=== PATIENT | female | born 1980 | race African-American/Black ===

== ENCOUNTER 2019-09-27 20:28 | Emergency (ER) | payer OTHER, MEDICAID ==
[~2019-09-27] VITALS: Ht 170.2 cm; Wt 100.0 kg
[2019-09-27 21:10] LABS: EOSINOPHILS % 6.1 % (0.0-5.0); HEMATOCRIT. 36.2 % (36.0-48.0); HEMOGLOBIN. 11.7 g/dL (12.0-16.0); LYMPHOCYTES % 21.9 % (20.0-50.0); MEAN CORPUSCULAR HEMOGLOBIN 27.9 pg (28.0-32.0); MEAN CORPUSCULAR VOLUME 86.2 fL (81.0-99.0); MEAN PLATELET VOLUME 10.9 fl (7.4-10.4); MONOCYTES % 7.9 % (2.0-8.0); NEUTROPHILS % 63.1 % (40.0-76.0); PLATELET 154 x1000/uL (130-400); RED CELL DISTRIBUTION WIDTH 16.8 % (11.6-14.6)
[2019-09-27 21:15] LABS: CHLORIDE 92 mEq/L (98-107)
[2019-09-27 21:21] LABS: PHOSPHORUS 5.9 mg/dL (2.5-4.9)
[2019-09-27] MEDS ORDERED: INSULIN REGULAR (HUMULIN R) 300UNITS/3ML IV ONE (21:30)
[2019-09-27] MEDS ORDERED: ONDANSETRON HCL 4MG/2ML INJ IV ONE (21:30)
[2019-09-27 21:33] LABS: HCG SCREEN NEGATIVE
[2019-09-27 22:11] LABS: BG BASE EXCESS -5.1 mmol/L (-2.0-2.0); BG CARBOXYHEMOGLOBIN 0.9 % (0.5-1.5); BG DEOXYHEMOGLOBIN 10.4 % (0.0-5.0); BG FRACTION INSPIRED OXYGEN 21; BG HCO3 ACT 21.6 mmol/L (22.0-26.0); BG METHEMOGLOBIN 0.3 % (0.0-1.5); BG OXYGEN SATURATION 89.5 % (92.0-98.5); BG OXYHEMOGLOBIN 88.4 % (94.0-97.0); BG PH 7.281 (7.350-7.450); BG PO2 62.7 mmHg (75.0-100.0); BG SAMPLE SITE RIGHT RADIAL; BG TOTAL HEMOGLOBIN 11.8 g/dL (12.0-18.0); BG VENT MODE ROOM AIR
[2019-09-27 23:30] VITALS: BP 126/75
== END 2019-09-28 00:26 | disposition left against medical advice (07) ==
LOC: ER 20:28
DX: R07.89 Other chest pain (principal); I12.0 Hypertensive chronic kidney disease with stage 5 chronic kidney disease or end stage renal disease; E11.22 Type 2 diabetes mellitus with diabetic chronic kidney disease; N18.6 End stage renal disease; Z99.2 Dependence on renal dialysis; Z98.2 Presence of cerebrospinal fluid drainage device
CPT/HCPCS: 36415; 36600; 80053; 82010; 82375; 82805; 82962; 83735; 84100; 84484; 84703; 85025; 93005; 96374; 96375; 99284; J1815; J2405

== ENCOUNTER 2023-09-24 23:32 | Inpatient (IN) | payer OTHER, MEDICAID ==
[~2023-09-24] VITALS: Ht 165.1 cm; Wt 90.0 kg
[2023-09-24 23:49] VITALS: O2SAT 98
[2023-09-25] VITALS: TEMP 98.4
[2023-09-25 01:14] LABS: EOSINOPHILS % 4.1 % (0.0-5.0); HEMATOCRIT. 27.9 % (36.0-48.0); HEMOGLOBIN. 8.7 g/dL (12.0-16.0); LYMPHOCYTES % 17.9 % (20.0-50.0); MEAN CORPUSCULAR HEMOGLOBIN 27.5 pg (28.0-32.0); MEAN CORPUSCULAR HGB CONC 31.1 g/dL (31.0-37.0); MEAN CORPUSCULAR VOLUME 88.4 fL (81.0-99.0); MONOCYTES % 8.6 % (2.0-8.0); NEUTROPHILS % 68.4 % (40.0-76.0); PLATELET 213 x1000/uL (130-400); RED BLOOD CELL COUNT 3.16 mill/uL (4.2-5.4); RED CELL DISTRIBUTION WIDTH 16.5 % (11.6-14.6); WHITE BLOOD COUNT 9.4 x1000/uL (4.5-11.0)
[2023-09-25 01:25] LABS: CHLORIDE 99 mEq/L (98-107); INDEX HEMOLYSI 1 (1-3); INDEX ICTERIC 1 (1-4); INDEX LIPEMIC 1 (1-3); POTASSIUM 3.6 mEq/L (3.5-5.1); SODIUM 137 mEq/L (136-145)
[2023-09-25 01:38] LABS: ALANINE AMINOTRANSFERASE 18 IU/L (13-61); ALBUMIN 3.4 g/dL (3.4-5.0); ASPARTATE AMINOTRANSFERASE 13 IU/L (15-37); B-HCG QUANTITATIVE < 1 mIU/mL (<3); BILIRUBIN TOTAL 0.5 mg/dL (0.1-1.0); CALCIUM 8.4 mg/dL (8.5-10.1); CARBON DIOXIDE 28 mEq/L (21-32); ETHANOL BLOOD < 10 mg/dL (<10); GLUCOSE 98 mg/dL (70-105); NT PRO B-TYPE NATRIURETIC PEP 10970 pg/mL (5-125); PROTEIN TOTAL 8.5 g/dL (6.0-8.3); UREA NITROGEN BLOOD 27 mg/dL (7-21)
[2023-09-25 01:41] LABS: PROTHROMBIN TIME 10.8 sec (9.6-11.0)
[2023-09-25 01:56] LABS: CREATININE 6.8 mg/dL (0.6-1.3); TROPONIN I HIGH SENSITIVITY 120 ng/L (<54)
[2023-09-25] MEDS: ASPIRIN 325MG EC TABLET PO NR ×3 (02:21→02:29)
[2023-09-25 04:52] LABS: TROPONIN I HIGH SENSITIVITY 117 ng/L (<54)
[2023-09-25] MEDS ORDERED: NALOXONE HCL 1 MG/ML 2ML VIAL IV NR (05:00)
[2023-09-25 05:35] VITALS: BP 120/70; PULSE 99; RESP 18
[2023-09-25] MEDS ORDERED: IPRATROPIUM/ALBUTEROL 0.5-3(2.5)MG/3ML NEB HHN PRN (05:45)
[2023-09-25] MEDS ORDERED: DOCUSATE SODIUM 100MG CAPSULE PO PRN (05:45)
[2023-09-25] MEDS ORDERED: MAGNESIUM/ALUMINUM HYDROXIDE/SIMETHICONE 30ML UDC PO PRN (05:45)
[2023-09-25] MEDS ORDERED: CLONIDINE 0.1MG TABLET PO PRN (05:45)
[2023-09-25] MEDS ORDERED: NON FORMULARY PATIENT HOME MED XX SCH (05:45)
[2023-09-25] MEDS ORDERED: ONDANSETRON HCL 4MG/2ML INJ IV PRN (05:45)
[2023-09-25] MEDS ORDERED: GUAIFENESIN 200MG/10ML SUGAR FREE UDC PO PRN (05:45)
[2023-09-25] MEDS ORDERED: INSU100I13 SUBCUT (05:52)
[2023-09-25] MEDS ORDERED: AMLO10TA80 PO (05:52)
[2023-09-25] MEDS ORDERED: NPH,100I SUBCUT (05:52)
[2023-09-25] MEDS ORDERED: P50 PO (05:52)
[2023-09-25] MEDS ORDERED: PANTOPRAZOLE SODIUM 40 MG/VIAL IV SCH (09:00)
== END 2023-09-25 06:41 | disposition left against medical advice (07) | DRG 69 ==
LOC: ER 23:32 → MICUSO 09-25 04:51
PROVIDERS: ADMIT Hospitalist; ATTEND Hospitalist
DX: G45.9 Transient cerebral ischemic attack, unspecified (principal); N18.6 End stage renal disease; I13.2 Hypertensive heart and chronic kidney disease with heart failure and with stage 5 chronic kidney disease, or end stage renal disease; I25.10 Atherosclerotic heart disease of native coronary artery without angina pectoris; I50.9 Heart failure, unspecified; Z53.29 Procedure and treatment not carried out because of patient's decision for other reasons; R29.703 NIHSS score 3; E11.39 Type 2 diabetes mellitus with other diabetic ophthalmic complication; E11.22 Type 2 diabetes mellitus with diabetic chronic kidney disease; Z76.5 Malingerer [conscious simulation]; Z88.0 Allergy status to penicillin; Z89.511 Acquired absence of right leg below knee; Z99.2 Dependence on renal dialysis; Z79.899 Other long term (current) drug therapy
CPT/HCPCS: 36415; 71045; 80053; 80320; 83880; 84484; 84702; 85025; 93005; 99291; G0480